=== PATIENT | male | born 1960 ===

== ENCOUNTER 2019-04-17 16:53 | Outpatient (CLI) | payer OTHER ==
[~2019-04-17 16:53] MED LIST: CRESTOR10 MG PO
== END 2019-04-17 17:00 | disposition home or self-care (01) ==
LOC: RAD 16:53
DX: R05 Cough (principal)

== ENCOUNTER 2021-12-03 08:41 | Outpatient (CLI) | payer OTHER | END 2021-12-03 08:51 | disposition home or self-care (01) | LOC: RAD 08:41 | PROVIDERS: ATTEND Internal Medicine Cardiovascular Disease | DX: I11.9 Hypertensive heart disease without heart failure (principal) ==